=== PATIENT | male | born 1980 ===

== ENCOUNTER 2022-11-03 03:05 | Emergency (ER) | payer OTHER ==
[2022-11-03 03:07] VITALS: BP 149/78
[2022-11-03] MEDS ORDERED: BACITRACIN ZINC OINT 1 PACKET TOP STA (03:34)
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
== END 2022-11-03 03:40 | disposition home or self-care (01) ==
LOC: ED 03:05
DX: Z02.89 Encounter for other administrative examinations (principal); S50.811A Abrasion of right forearm, initial encounter; V49.9XXA Car occupant (driver) (passenger) injured in unspecified traffic accident, initial encounter
CPT/HCPCS: 99282